=== PATIENT | female | born 1990 | race Caucasian/White ===

== ENCOUNTER 2016-05-19 16:26 | Emergency (ER) | payer MEDICAID ==
[~2016-05-19] VITALS: Ht 162.6 cm; Wt 59.0 kg
[~2016-05-19 16:26] MED LIST: PROT40TA PO; TUMS500C PO; Z.0.BCPILL PO
[2016-05-19 16:32] VITALS: BP 132/89; PULSE 108; RESP 16; TEMP 98.1; O2SAT 99
[2016-05-19] MEDS ORDERED: PREN29TA PO (16:44)
[2016-05-19] MEDS ORDERED: TETANUS/DIPHTHERIA TOXOID ADULT 0.5 ML VIAL IM ONE (16:45)
[2016-05-19] MEDS ORDERED: ACETAMINOPHEN 325 MG TAB PO ONE (16:45)
[2016-05-19] MEDS ORDERED: LIDO2GEL11 TOPICAL (16:54)
[2016-05-19] MEDS ORDERED: BACT2OIN TOPICAL (16:54)
--- NOTE | 2016-05-19 17:00 | PD ---
HPI Chief Complaint: Burn Time Seen by Provider: 16:54 Travel History International Travel<30 days: No Contact w/Intl Traveler<30days: No Traveled to known affect area: No History of Present Illness HPI 25-year-old female that presents to the ED for evaluation of burn to her right hand. Per patient she is right-hand dominant. Per patient she was working and she was bowling water to make soup and she lost her balance and some blood work going to her right hand. She states that the pain is mainly to the palmar aspect of the first digit but she also has pain on her knuckles but more noticeable erythema and blistering on the first digit. She states that she is 5 months . She states that she does not know her last tetanus shot. She is likely to latex. She apply lidocaine jelly to her hand from work to help with the burning. She denies any chest pain or shortness of breath. Other medical prongs. No falls with the . She specifically wants us to give her stuff that is safe during . She states that the pain currently is 10 out of 10 mainly on the first digit. Denies any other medical problems. Nothing makes the pain better or worse. Per patient she immediately flushed it with cold water. PFSH Past Medical History Medical History: Denies Significant Hx Diminished Hearing: No Gastrointestinal Disorders: Yes (GASTRITIS) Immunizations Current: Yes Tetanus Vaccination: > 5 Years Influenza Vaccination: No ?: LMP: 5 mths Past Surgical History Tonsillectomy: Yes Social History Alcohol Use: Yes (occasional) Tobacco Use: No Substance Use: No Allergies-Medications (Allergen,Severity, Reaction): Coded Allergies: Latex (Verified Allergy, Severe, 05/19/16) Reported Meds & Prescriptions Reported Meds & Active Scripts Active Bactroban Topical (Mupirocin) 2% Oint 1 Applic TOPICAL BID Lidocaine Topical (Lidocaine HCl) 2 % Jel 1 Applic TOPICAL QID 10 Days Reported Plus Iron 29-1 mg ( Vit-Iron Carbonyl) 1 Tab Tab 1 Tab PO DAILY Review of Systems General / Constitutional: No: Fever, Chills, Weight Gain, Weight Loss, Other Eyes: No: Diploplia, Blurred Vision, Photophobia, Drainage, Redness, Foreign Body Sensation, Pain, Tearing, Blind Spots, Visual changes, Blindness, Other HENT: No: Headaches, Vertigo, Lightheadedness, Sore Throat, Rhinitis, Rhinorrhea, Congestion, Nosebleed, Neck Stiffness, Neck Pain, Masses, Gingival Bleeding, Dental Difficulties, Ear Discharge, Earache, Other Cardiovascular: No: Chest Pain or Discomfort, Palpitations, Irregular Rhythm, Tachycardia, Diaphoresis, Syncope, Dyspnea on exertion, Varicosities, Edema, Cyanosis, Varicosities, Phlebitis, Claudication, Other Respiratory: No: Cough, Shortness of Breath, Wheezing, Sneezing, Orthopnea, Hemoptysis, Stridor, Night Sweats, Pleuritic Pain, Other Gastrointestinal: No: Nausea, Vomiting, Diarrhea, Abdominal Pain, Hematemesis, Hematochezia, Constipation, Changes in Bowel Habits, Indigestion, Dysphagia, Loss of Appetite, Other Genitourinary: No: Urgency, Frequency, Dysuria, Nocturia, Hematuria, Decreased Urinary Output, Oliguria, Hesitancy, Dribbling, Incontinence, Pelvic Pain, Flank Pain, Dyspareunia, Discharge, Dysmenorrhea, Menorrhagia, Metorrhagia, Vaginal Bleeding, Other Musculoskeletal: Positive: Pain, No: Myalgias, Arthralgias, Limited ROM, Weakness, Cramping, Edema, Atrophy, Other Skin: Positive Other (burn), No Rash, No Itching, No Dryness, No Lumps, No Hives, No Change in Pigmentation, No Change in nails, No Alopecia, No Lesions, No Breast Lumps, No Breast Tenderness, No Breast Swelling Neurologic: No: Weakness, Dizziness, Syncope, Focal Abnormalities, Coordination Problem, Tremor, Ataxia, Headache, Change in Mentation, Slurred Speech, Paresthesia, Incontinence, Seizures, Sensory Disturbance, Other Psychiatric: No: Anxiety, Depression, Suicidal Ideations, Disorder of Thought, Mood Disorder, Substance Abuse, Homicidal Ideation, Other Endocrine: No: Heat Intolerance, Cold Intolerance, Polyuria, Polydipsia, Other Hematologic/Lymphatic: No: Easy Bruising, Lymph Node Enlargement, Other Physical Exam Narrative GENERAL: SKIN: Warm and dry. Patient has full range of motion of all fingers of the right hand. Patient able to move all fingers including the first digit. She does have some erythema that is blanchable with what appears to be early blistering on the right first digit. Patient has good sensation of all fingers. Patient has minimal erythema noted on the palmar aspect of the hand mainly on the second and third digits but is not circumferential. No obvious deformity noted the dorsal aspect of the hand. Most of the cheng appears to be first-degree. HEAD: Atraumatic. Normocephalic. EYES: Pupils equal and round. No scleral icterus. No injection or drainage. ENT: No nasal bleeding or discharge. Mucous membranes pink and moist. NECK: Trachea midline. No JVD. CARDIOVASCULAR: Regular rate and rhythm. RESPIRATORY: No accessory muscle use. Clear to auscultation. Breath sounds equal bilaterally. GASTROINTESTINAL: Abdomen soft, non-tender, nondistended. Hepatic and splenic margins not palpable. MUSCULOSKELETAL: Extremities without clubbing, cyanosis, or edema. No obvious deformities. NEUROLOGICAL: Awake and alert. No obvious cranial nerve deficits. Motor grossly within normal limits. Five out of 5 muscle strength in the arms and legs. Normal speech. PSYCHIATRIC: Appropriate mood and affect; insight and judgment normal. Data Data Last Documented VS Vital Signs Date Time Temp Pulse Resp B/P Pulse Ox O2 Delivery O2 Flow Rate FiO2 05/19/16 16:32 98.1 108 16 132/89 99 Orders Acetaminophen (Tylenol) (05/19/16 16:45) Tetanus/Diphtheria Tox Adult (Tetanus/Di (05/19/16 16:45) MDM Medical Decision Making Medical Screen Exam Complete: Yes Emergency Medical Condition: Yes Medical Record Reviewed: Yes Differential Diagnosis First-degree burn versus second degree burn versus third-degree burn. Narrative Course 25-year-old female that presents to the ED for evaluation of cheng to the hand. Patient was properly examined and was found to have signs and symptoms consistent with appears to be first degree cheng to the hand. Not circumferential. Do affect mostly the first digit but she is able to move it fully with no sensation loss. My attending Dr. Nuñez evaluated the patient with me and agrees with plan. Patient was offered pain medication including narcotic pain medication but she declined secondary to having adverse effects to the fetus. She prefers to avoid anything that will harm that maybe. My attending and I agree we'll treat patient with Tylenol for pain. Patient was given a prescription for lidocaine jelly. Patient was given a prescription for basically tracing. Told to follow closely with PCP. See ED for any worsening symptoms. Ice to the area as needed to help with the pain. She was given note for work for a week. See ED for any worsening symptoms. Diagnosis Primary Impression: 1st deg burn hand-mult Patient Instructions: General Instructions Additional Instructions: Take medications as prescribed. Follow-up with PCP. See ED for worsening symptoms. Ice as needed. Tylenol for pain. Med/Other Pt SpecificInfo: Prescription(s) given, Wound Care Scripts Mupirocin Topical (Bactroban Topical)2% Oint1 Applic TOPICAL BID #22 GM Ref 0 Prov:Kathi Nuñez DO 05/19/16 Lidocaine Topical 2 % Jel1 Applic TOPICAL QID 10 Days Ref 0 Prov:Kathi Nuñez DO 05/19/16 Disposition: 01 DISCHARGE HOME Condition: Stable Jose Castro May 19, 2016 17:00
== END 2016-05-19 17:15 | disposition home or self-care (01) ==
LOC: PHEFT 16:26
DX: T23.009A Burn of unspecified degree of unspecified hand, unspecified site, initial encounter (principal); Z23 Encounter for immunization
CPT/HCPCS: 90471; 90714

== ENCOUNTER 2016-09-27 17:49 | Inpatient (IN) | payer MEDICAID ==
[~2016-09-27] VITALS: Ht 162.6 cm; Wt 68.0 kg
[~2016-09-27 17:49] MED LIST changes: +BACT2OIN TOPICAL; +LIDO2GEL11 TOPICAL; +PREN29TA PO; -PROT40TA PO; -TUMS500C PO; -Z.0.BCPILL PO
[2016-09-27] MEDS ORDERED: PROT40TA PO (18:22)
[2016-09-27 18:41] VITALS: RESP 17; TEMP 98.3
[2016-09-27 18:43] VITALS: BP 133/89; PULSE 86
[2016-09-27] MEDS ORDERED: NS 1000 ML IV PRN (18:45)
[2016-09-27] MEDS ORDERED: LACTATED RINGER'S 1000 ML BOLUS IV PRN (18:45)
[2016-09-27] MEDS ORDERED: LIDOCAINE HCL 1% 50 ML VIAL I-DERMAL PRN (18:45)
[2016-09-27] MEDS ORDERED: ZOLPIDEM TARTRATE 10 MG TAB PO PRN (18:45)
[2016-09-27] MEDS ORDERED: ONDANSETRON HCL 4 MG/2 ML VIAL IV PRN (18:45)
[2016-09-27] MEDS ORDERED: CITRIC ACID-SODIUM CITRATE LIQ 30 ML UDC PO SCH (18:45)
[2016-09-27] MEDS ORDERED: DINOPROSTONE 10 MG INSERT - REMOVE AT 0600 VAGINAL ONE (18:45)
[2016-09-27] MEDS ORDERED: NS 500 ML BOLUS IV PRN (18:45)
[2016-09-27] MEDS ORDERED: OXYTOCIN 30 UNITS 500ML PREMIX IV ONE (18:45)
[2016-09-27] MEDS ORDERED: LIDOCAINE HCL 1% 50 ML VIAL INFIL PRN (18:45)
[2016-09-27] MEDS: LACTATED RINGER'S 1000 ML IV SCH (18:45)
[2016-09-27] MEDS ORDERED: MINERAL OIL 10 ML VIAL TOPICAL PRN (18:45)
[2016-09-27] MEDS ORDERED: OXYTOCIN 30 UNITS/NS 500ML PREMIX IV SCH (18:45)
[2016-09-27 18:49] VITALS: BP 129/87; PULSE 81
[2016-09-27] MEDS ORDERED: PENICILLIN G POT 5,000,000 UNITS/NS 100 ML (Mini-Bag Plus) IV ONE ×2 (19:00)
[2016-09-27 19:30] LABS: BACTERIA, URINE RARE /hpf; BLOOD, URINE NEG (NEG); COMMENT (UR) CULT NOT INDICATED; CULTURE IF INDICATED CULT NOT INDICATED; GLUCOSE,URINE NEG (NEG); KETONE, URINE NEG (NEG); MUCUS URINE FEW /lpf (OCC); NITRITE,URINE NEG (NEG); PH, URINE 6.5 (5.0-8.5); SQUAMOUS EPITHELIAL CELL URINE 6 /hpf (0-5); URINE COLOR YELLOW (YELLW/STRAW)
[2016-09-27 19:31] LABS: AUTOMATED NEUTROPHIL # 3.6 TH/MM3 (1.8-7.7); BASOPHIL % 0.6 % (0.0-2.0); EOSINOPHIL # 0.1 TH/MM3 (0-0.4); HEMATOCRIT 33.8 % (35.0-46.0); HEMO FLAGS DIFF FINAL; LYMPH % 32.2 % (9.0-44.0); LYMPHOCYTE # 2.2 TH/MM3 (1.0-4.8); MEAN CELL VOLUME 82.1 FL (80.0-100.0); MEAN CORPUSCULAR HEMOGLOBIN 26.2 PG (27.0-34.0); MONO % 11.3 % (0.0-8.0); NEUT % 53.9 % (16.0-70.0); PLATELET COUNT 192 TH/MM3 (150-450); RED BLOOD COUNT 4.12 MIL/MM3 (4.00-5.30); RED CELL DISTRIBUTION WIDTH 14.8 % (11.6-17.2); WHITE BLOOD COUNT 6.7 TH/MM3 (4.0-11.0)
[2016-09-27] MEDS ORDERED: PENICILLIN G POT 2,500,000 UNITS/NS 100 ML IV SCH ×2 (23:00)
[2016-09-27 23:10] VITALS: BP 115/67; PULSE 82; TEMP 98.2
[2016-09-27 23:11] VITALS: RESP 18
[2016-09-28] VITALS (45 sets, daily range): BP systolic 117–175; BP diastolic 75–101; PULSE 72–118; RESP 16–18; TEMP 97.8–100.4
[2016-09-28] MEDS ORDERED: PENICILLIN G POT 5,000,000 UNITS/NS 100 ML (Mini-Bag Plus) IV ONE ×2 (06:00)
[2016-09-28] MEDS ORDERED: PENICILLIN G POT 2,500,000 UNITS/NS 100 ML IV SCH ×2 (10:00)
[2016-09-28] MEDS ORDERED: fentaNYL 2MCG-BUPIV 0.125% INJ 100 ML ONE ×2 (10:42→14:08)
[2016-09-28] MEDS: LACTATED RINGER'S 1000 ML IV SCH (10:45)
--- NOTE | 2016-09-28 13:24 | HHI.HP ---
HPI Travel History International Travel<30 Days: No Contact w/Intl Traveler<30Days: No Known Affected Area: No History of Present Illness HPI 26yo G [id number] presents at 39 wks for induction of labor. uncomplicated. +FM denies LOF, VB, CTX History Past Medical History Medical History: Denies Significant Hx Obstetric History Obstetric History X 1 Past Surgical History Narrative Surgical tonsillectomy ACL reconstruction wisdom teeth extraction Family History Narrative Family History mom HTN mgm: cancer Social History Alcohol Use: No Tobacco Use: No Substance Abuse: No Allergies-Medications (Allergen,Severity, Reaction): Coded Allergies: Latex (Verified Allergy, Severe, 09/27/16) Home Meds Reported Medications Pantoprazole (Protonix)40 Mg Tab40 Mg PO DAILY #30 TAB Ref 0 09/27/16 Vit-Iron Carbonyl ( Plus Iron 29-1 mg)1 Tab Tab1 Tab PO DAILY #30 TAB Ref 0 05/19/16 Discontinued Scripts Mupirocin Topical (Bactroban Topical)2% Oint1 Applic TOPICAL BID #22 GM Ref 0 Prov:Kathi Nuñez DO 05/19/16 Lidocaine Topical 2 % Jel1 Applic TOPICAL QID 10 Days Ref 0 Prov:Kathi Nuñez DO 05/19/16 Review of Systems Except as stated in HPI: all other systems reviewed are Neg Physical Exam Vital Signs Date Time Temp Pulse Resp B/P Pulse Ox O2 Delivery O2 Flow Rate FiO2 09/28/16 13:00 79 122/75 09/28/16 12:45 77 129/87 09/28/16 12:30 75 129/83 09/28/16 12:15 72 09/28/16 11:42 97.8 18 09/28/16 11:35 76 09/28/16 11:35 79 123/81 09/28/16 11:31 90 137/79 09/28/16 11:30 81 09/28/16 11:25 75 09/28/16 11:25 90 09/28/16 11:25 123/84 09/28/16 11:20 76 123/79 09/28/16 11:20 80 09/28/16 11:15 85 09/28/16 11:15 82 126/82 09/28/16 11:10 87 135/91 09/28/16 11:10 95 09/28/16 11:05 82 09/28/16 11:05 80 134/81 09/28/16 11:03 83 132/84 09/28/16 11:00 80 09/28/16 10:56 118 154/94 09/28/16 10:55 90 09/28/16 10:39 83 139/83 09/28/16 09:30 84 134/82 09/28/16 09:15 77 127/85 09/28/16 09:00 85 138/95 09/28/16 08:31 86 130/79 09/28/16 08:15 77 133/92 09/28/16 08:00 82 134/94 09/28/16 07:50 98.2 18 09/28/16 07:45 85 126/94 09/28/16 07:33 84 126/90 09/28/16 03:03 18 09/28/16 03:03 81 126/77 09/28/16 03:03 98.5 09/27/16 23:11 18 09/27/16 23:10 98.2 09/27/16 23:10 82 115/67 09/27/16 18:49 81 129/87 09/27/16 18:43 86 133/89 09/27/16 18:41 98.3 17 Narrative GENERAL: Well-nourished, well-developed patient. SKIN: Warm and dry. HEAD: Normocephalic and atraumatic. EYES: No scleral icterus. No injection or drainage. ENT: No nasal drainage noted. Mucous membranes pink. Airway patent. NECK: Supple, trachea midline. No JVD. CARDIOVASCULAR: Regular rate and rhythm without murmurs, gallops, or rubs. RESPIRATORY: Breath sounds equal bilaterally. No accessory muscle use. BREASTS: Bilateral exam showed no masses , no retractions, no nipple discharge. ABDOMEN/GI: Abdomen soft, non-tender, bowel sounds present, no rebound, no guarding Gravid to 39 weeks size Fundal Height: [-] GENITOURINARY: External Genitalia: intact and normal in appearance BUS glands: [-] Cervix: [-] Dilatation: [-] 2 Effacement: [-] 50 Station: [-] -3 Presentation: [-] Membranes: [ ruptured] clear Uterine Contractions: [-] irregular FHT's: Category: [-] 1 Baseline: [-] 140s Reactive: [-] yes Variability: [-] Decels: [-] EXTREMITIES: No cyanosis or edema. BACK: Nontender without obvious deformity. No CVA tenderness. NEUROLOGICAL: Awake and alert. Motor and sensory grossly within normal limits. Five out of 5 muscle strength in all muscle groups. Normal speech. Data Data Orders Admit To Inpatient (09/27/16 ) Code Status (09/27/16 18:31) Vital Signs (Adult) .Per protocol (09/27/16 18:31) Activity Oob Ad Clarice (09/27/16 18:31) Heart (09/27/16 18:31) Amnioinfusion (09/27/16 18:31) Urinary Catheter Management .ONCE (09/27/16 18:31) Complete Blood Count With Diff (09/27/16 18:31) Hold Clot (09/27/16 18:31) Abo/Rh Blood Type (09/27/16 18:31) Urinalysis - C+S If Indicated (09/27/16 18:31) Resp Oxygen Non Rebreathe Mask (09/27/16 ) ^ Epidural / Intrathecal Infus (09/27/16 18:31) Admit To Inpatient (09/27/16 ) Diet Regular Basic (09/27/16 Dinner) Diet Liquid (09/28/16 Breakfast) Activity Oob Ad Clarice (09/27/16 18:31) Activity Oob Ad Clarice (09/27/16 18:31) ^ Labor Induction (09/27/16 18:31) ^ Vaginal Insert (09/27/16 18:31) ^ Vaginal Lavage (09/27/16 18:31) Heart (09/27/16 18:31) ^ Non Stress Test (09/27/16 18:31) Response To Medication .Post New Med Administration, Reaction (09/27/16 18:31) ^ Discontinue Medication (09/27/16 18:31) Oxytocin 30 Units-500ml Premix (Pitocin (09/27/16 18:45) Dinoprostone Vag Insert (Cervidil Vag In (09/27/16 18:45) Zolpidem (Ambien) (09/27/16 18:45) Lactated Ringer's 1000 Ml Inj (Lr 1000 M (09/27/16 18:45) Lactated Ringer's 1000 Ml Inj (Lr 1000 M (09/27/16 18:45) Sodium Chlorid 0.9% 500 Ml Inj (Ns 500 M (09/27/16 18:45) Sodium Chlor 0.9% 1000 Ml Inj (Ns 1000 M (09/27/16 18:45) Lidocaine 1% Inj (50 Ml) (Xylocaine 1% I (09/27/16 18:45) Citric Acid-Sodium Citrate Liq (Bicitra (09/27/16 18:45) Ondansetron Inj (Zofran Inj) (09/27/16 18:45) Fentanyl Inj (Fentanyl Inj) (09/27/16 18:45) Fentanyl Inj (Fentanyl Inj) (09/27/16 18:45) Oxytocin 30 Units-500ml Premix (Pitocin (09/27/16 18:45) Lidocaine 1% Inj (50 Ml) (Xylocaine 1% I (09/27/16 18:45) Light Mineral Oil (Muri-Lube Oil) (09/27/16 18:45) Penicillin G Potassium Inj (Pfizerpen-G (09/28/16 06:00) Penicillin G Potassium Inj (Pfizerpen-G (09/28/16 10:00) Fentanyl 2mcg-Bupiv 0.125% Inj (Fentanyl (09/28/16 10:42) Labs Laboratory Tests Test 09/27/16 18:45 White Blood Count 6.7 Red Blood Count 4.12 Hemoglobin 10.8 Hematocrit 33.8 Mean Corpuscular Volume 82.1 Mean Corpuscular Hemoglobin 26.2 Mean Corpuscular Hemoglobin 32.0 Concent Red Cell Distribution Width 14.8 Platelet Count 192 Mean Platelet Volume 9.2 Neutrophils (%) (Auto) 53.9 Lymphocytes (%) (Auto) 32.2 Monocytes (%) (Auto) 11.3 Eosinophils (%) (Auto) 2.0 Basophils (%) (Auto) 0.6 Neutrophils # (Auto) 3.6 Lymphocytes # (Auto) 2.2 Monocytes # (Auto) 0.8 Eosinophils # (Auto) 0.1 Basophils # (Auto) 0.0 CBC Comment DIFF FINAL Differential Comment Urine Color YELLOW Urine Turbidity HAZY Urine pH 6.5 Urine Specific [place] 1.015 Urine Protein TRACE Urine Glucose (UA) NEG Urine Ketones NEG Urine Occult Blood NEG Urine Nitrite NEG Urine Bilirubin NEG Urine Urobilinogen LESS THAN 2.0 Urine Leukocyte Esterase SMALL Urine RBC 2 Urine WBC 2 Urine Squamous Epithelial 6 Cells Urine Bacteria RARE Urine Mucus FEW Microscopic Urinalysis Comment CULT NOT INDICATED Blood Type A POSITIVE Band and Hold HOLD CLOT IN BB Assessment/Plan Problem List: (1) Plan: s/p cervidil cont pit cont pcn g Meek Mon MD Sep 28, 2016 13:24
[2016-09-28] MEDS ORDERED: MISOPROSTOL 200 MCG TAB ONE (14:37)
[2016-09-28] MEDS ORDERED: DIPHTH/TETANUS/ACEL PERTUSSIS (BOOSTER) 0.5 ML VIAL/PFS IM ONE (16:00)
[2016-09-28] MEDS ORDERED: MEASLES, MUMPS, RUBELLA VACCINE 0.5 ML VIAL SQ ONE (16:00)
--- NOTE | 2016-09-28 18:18 | PD.OB.DELI ---
Delivery Date: Sep 28, 2016 Anesthesia: Epidural, Lidocaine local to perineum Episiotomy: None Vaginal Delivery: Normal Presentation: Occiput anterior Nuchal Cord: None Delayed cord clamping (45 sec): Yes Infant: Male, Single One Minute : 7 Five Minute : 9 Weight: 6-14 Placenta: Spontaneous delivery, Intact, 3 vessel cord (right labial laceration repaired with 3-0 chromic in a running fashion) Laceration: 1 deg (right labial laceration repaired with 3-0 chromic suture in running fashion) Additional Information PPH resolved with uterine massage, pitocin and cytotec, EBL 550 Meek Mon MD Sep 28, 2016 18:18
[2016-09-28] MEDS ORDERED: DOCUSATE SODIUM 50 MG/SENNA 8.6 MG TAB PO PRN (18:30)
[2016-09-28] MEDS ORDERED: ONDANSETRON ODT 4 MG TAB PO PRN (18:30)
[2016-09-28] MEDS ORDERED: WITCH HAZEL 50%/GLYCERIN 12.5% 40 PAD JAR TOPICAL PRN (18:30)
[2016-09-28] MEDS ORDERED: SODIUM CHLORIDE 0.9% FLUSH 10 ML FLUSH IV FLUSH PRN (18:30)
[2016-09-28] MEDS ORDERED: BENZOCAINE 20% TOPICAL SPRAY 60 ML CAN TOPICAL PRN (18:30)
[2016-09-28] MEDS ORDERED: ZOLPIDEM TARTRATE 5 MG TAB PO PRN (18:30)
[2016-09-28] MEDS ORDERED: ALUMINUM/MAGNESIUM/SIMETH 30 ML CUP PO PRN (18:30)
[2016-09-28] MEDS ORDERED: oxyCODONE/ACETAMINOPHEN 5 MG/325 MG TAB PO PRN (18:30)
[2016-09-28] MEDS: IBUPROFEN 600 MG TAB PO PRN (19:50)
[2016-09-28] MEDS: ACETAMINOPHEN 325 MG TAB PO PRN (19:50)
[2016-09-28] MEDS ORDERED: SODIUM CHLORIDE 0.9% FLUSH 10 ML FLUSH IV FLUSH SCH (21:00)
[2016-09-29] MEDS: ACETAMINOPHEN 325 MG TAB PO PRN ×3 (03:15→16:48)
[2016-09-29] MEDS: IBUPROFEN 600 MG TAB PO PRN ×3 (03:17→16:47)
[2016-09-29 05:30] LABS: AUTOMATED NEUTROPHIL # 5.4 TH/MM3 (1.8-7.7); BASOPHIL % 0.5 % (0.0-2.0); EOSINOPHIL # 0.1 TH/MM3 (0-0.4); EOSINOPHIL % 1.2 % (0.0-4.0); HEMATOCRIT 30.6 % (35.0-46.0); HEMO FLAGS DIFF FINAL; LYMPH % 22.4 % (9.0-44.0); LYMPHOCYTE # 1.9 TH/MM3 (1.0-4.8); MEAN CELL VOLUME 81.9 FL (80.0-100.0); MEAN CORPUSCULAR HEMOGLOBIN 26.8 PG (27.0-34.0); MEAN CORPUSCULAR HGB CONC 32.7 % (32.0-36.0); MONO % 12.4 % (0.0-8.0); NEUT % 63.5 % (16.0-70.0); PLATELET COUNT 166 TH/MM3 (150-450); RED BLOOD COUNT 3.74 MIL/MM3 (4.00-5.30); RED CELL DISTRIBUTION WIDTH 14.9 % (11.6-17.2); WHITE BLOOD COUNT 8.5 TH/MM3 (4.0-11.0)
--- NOTE | 2016-09-29 08:33 | HHI.OB ---
Subjective Post Day: 1 Remarks pain controlled, mod lochia, durga po, +void/flatus Objective Vitals/I&O Vital Signs Date Time Temp Pulse Resp B/P Pulse Ox O2 Delivery O2 Flow Rate FiO2 09/28/16 19:30 98.9 89 16 120/77 09/28/16 18:10 99.2 09/28/16 18:10 89 16 127/79 09/28/16 16:07 100.4 09/28/16 15:48 99.9 09/28/16 15:46 102 117/87 09/28/16 15:40 99.3 09/28/16 15:29 84 138/86 09/28/16 15:01 115 135/82 09/28/16 14:46 90 141/86 09/28/16 14:30 80 130/89 09/28/16 14:22 111 175/75 09/28/16 14:20 90 09/28/16 13:45 93 152/95 09/28/16 13:34 80 136/90 09/28/16 13:33 90 122/101 09/28/16 13:31 96 156/88 09/28/16 13:15 84 144/98 09/28/16 13:00 79 122/75 09/28/16 12:45 77 129/87 09/28/16 12:30 75 129/83 09/28/16 12:15 72 09/28/16 11:42 97.8 18 09/28/16 11:35 76 09/28/16 11:35 79 123/81 09/28/16 11:31 90 137/79 09/28/16 11:30 81 09/28/16 11:25 75 09/28/16 11:25 90 09/28/16 11:25 123/84 09/28/16 11:20 76 123/79 09/28/16 11:20 80 09/28/16 11:15 85 09/28/16 11:15 82 126/82 09/28/16 11:10 87 135/91 09/28/16 11:10 95 09/28/16 11:05 82 09/28/16 11:05 80 134/81 09/28/16 11:03 83 132/84 09/28/16 11:00 80 09/28/16 10:56 118 154/94 09/28/16 10:55 90 09/28/16 10:39 83 139/83 09/28/16 09:30 84 134/82 09/28/16 09:15 77 127/85 09/28/16 09:00 85 138/95 Objective Remarks GENERAL: Well-nourished, well-developed patient. CARDIOVASCULAR: Regular rate and rhythm without murmurs, gallops, or rubs. RESPIRATORY: Breath sounds equal bilaterally. No accessory muscle use. ABDOMEN/GI: Abdomen soft, non-tender. Fundus: Firm, non-tender at umbilicus. GENITOURINARY: Light to moderate bleeding. EXTREMITIES: No cyanosis or edema, non-tender, without signs of DVT. Medications and IVs Current Medications Medications (Trade) Dose Ordered Sig/Sulema Route Start Time Stop Time Status Last Admin (NS Flush) 2 ml BID IV FLUSH 09/28/16 21:00 (NS Flush) 2 ml UNSCH PRN IV FLUSH 09/28/16 18:30 (Tylenol) 650 mg Q4H PRN PO 09/28/16 18:30 09/29/16 03:15 (Motrin) 600 mg Q6H PRN PO 09/28/16 18:30 09/29/16 03:17 (Percocet 5-325 Mg) 1 tab Q4H PRN PO 09/28/16 18:30 (Americaine 20% Top Spr) 1 spray Q4H PRN TOPICAL 09/28/16 18:30 09/28/16 19:49 (Tucks Pads) 1 applic QID PRN TOPICAL 09/28/16 18:30 09/28/16 19:50 (Dolly-Colace) 2 tab Q12H PRN PO 09/28/16 18:30 (Ambien) 5 mg HS PRN PO 09/28/16 18:30 (Mag-Al Plus Susp Liq) 15 ml Q8H PRN PO 09/28/16 18:30 (Zofran Odt) 4 mg Q6H PRN PO 09/28/16 18:30 Assessment/Plan Problem List: (1) Spontaneous vaginal delivery Plan: routine pp care Meek Mon MD Sep 29, 2016 08:33
[2016-09-29 09:00] VITALS: BP 122/84; PULSE 86; RESP 16; TEMP 98
[2016-09-29 19:34] VITALS: BP 117/77; PULSE 81; RESP 18; TEMP 98.4
[2016-09-30] MEDS: ACETAMINOPHEN 325 MG TAB PO PRN (01:39)
[2016-09-30] MEDS: IBUPROFEN 600 MG TAB PO PRN (01:39)
[2016-09-30 07:42] VITALS: BP 120/82; PULSE 74; RESP 18; TEMP 98.3
[2016-09-30] MEDS ORDERED: IBUP-232 PO (12:46)
--- NOTE | 2016-09-30 12:48 | HHI.DCPOC ---
Discharge Care Plan Diagnosis: (1) Spontaneous vaginal delivery Your Health Problems Are: Vaginal delivery Report Symptoms to Your Doctor -Temperature above 100.5 degrees -Redness, of incision or excessive or foul smelling drainage -Unusual pain or calf pain -Increased vaginal bleeding -Painful or difficulty urinating -Feelings of extreme sadness or anxiety after 2 weeks Goals to Promote Your Health * To prevent worsening of your condition and complications * To maintain your health at the optimal level Directions to Meet Your Goals Take your medications as prescribed Follow your dietary instruction Follow activity as directed Ensure plenty of rest for recovery Drink fluids for hydration Keep your appointments as scheduled Take your immunizations and boosters as scheduled If your symptoms worsen call your PCP, if no PCP go to Urgent Care Center or Emergency Room Smoking is Dangerous to Your Health. Avoid second hand smoke Call the 24-hour crisis hotline for domestic abuse at Meek Mon MD Sep 30, 2016 12:48
--- NOTE | 2016-09-30 12:50 | HHI.DS ---
Admission Date Sep 27, 2016 at 17:49 Discharge Date: Sep 30, 2016 Admitting Diagnosis Diagnosis: (1) Spontaneous vaginal delivery Delivery Date: Sep 28, 2016 Vaginal Delivery: Normal : Male, Single Brief History 26yo G [id number] presents at 39 wks for induction of labor. uncomplicated. +FM denies LOF, VB, CTX Hospital Course pt was admitted for induction of labor with cervidil. she had an uncomplicated . by PPD 2 pt was voiding with good pain control and stable for d/c home Pt Condition on Discharge: Stable Discharge Disposition: Discharge Home Discharge Instructions Diet Instructions: As Tolerated, No Restrictions Additional Diet Instructions: Drink at least 8 - 16 oz bottles of water a day Activities You Can Perform: Shower Only-No Bath, Sitz Bath Activities to Avoid: Lifting/Bending, Sexual Activity Additional Activity Instruc.: No driving until off pain medications Do not lift anything heavier than your baby in an carrier Meek Mon MD Sep 30, 2016 12:49
== END 2016-09-30 13:28 | disposition home or self-care (01) | DRG 774 ==
LOC: H2EA 17:49 → H1EA 09-28 16:33
PROVIDERS: ADMIT Obstetrics & Gynecology; ATTEND Obstetrics & Gynecology
PROC: 3E0P7GC Introduction of Other Therapeutic Substance into Female Reproductive, Via Natural or Artificial Opening (ICD-10-PCS; 2016-09-27)
PROC: 10E0XZZ Delivery of Products of Conception, External Approach (ICD-10-PCS; principal; 2016-09-28)
PROC: 0HQ9XZZ Repair Perineum Skin, External Approach (ICD-10-PCS; 2016-09-28)
DX: O72.1 Other immediate postpartum hemorrhage (principal); O70.0 First degree perineal laceration during delivery; Z37.0 Single live birth; Z3A.39 39 weeks gestation of pregnancy
CPT/HCPCS: 59025; 81001; 85025; 86900; 86901; J2540; J2590; J7120

== ENCOUNTER 2017-09-06 08:04 | Inpatient (IN) | payer MEDICAID ==
[~2017-09-06 08:04] MED LIST changes: -BACT2OIN TOPICAL; +IBUP-232 PO; -LIDO2GEL11 TOPICAL; +PROT40TA PO
[2017-09-06 08:49] LABS: BASOPHIL # 0.1 TH/MM3 (0-0.2); EOSINOPHIL # 0.4 TH/MM3 (0-0.4); EOSINOPHIL % 5.8 % (0.0-4.0); HEMATOCRIT 32.3 % (35.0-46.0); HEMOGLOBIN 10.6 GM/DL (11.6-15.3); LYMPHOCYTE # 2.2 TH/MM3 (1.0-4.8); MEAN CELL VOLUME 79.6 FL (80.0-100.0); MEAN CORPUSCULAR HEMOGLOBIN 26.1 PG (27.0-34.0); MEAN CORPUSCULAR HGB CONC 32.7 % (32.0-36.0); MEAN PLATELET VOLUME 8.3 FL (7.0-11.0); MONO % 10.1 % (0.0-8.0); MONOCYTE # 0.8 TH/MM3 (0-0.9); NEUT % 53.1 % (16.0-70.0); PLATELET COUNT 222 TH/MM3 (150-450); RED BLOOD COUNT 4.05 MIL/MM3 (4.00-5.30); RED CELL DISTRIBUTION WIDTH 14.9 % (11.6-17.2); WHITE BLOOD COUNT 7.5 TH/MM3 (4.0-11.0)
[2017-09-06] MEDS ORDERED: LACTATED RINGER'S 1000 ML INJ 1,000 ML IV SCH (09:00)
[2017-09-06 09:03] LABS: AMORPHOUS SEDIMENT, URINE RARE; BACTERIA, URINE OCC /hpf; BILIRUBIN, URINE NEG (NEG); BLOOD, URINE NEG (NEG); GLUCOSE,URINE NEG (NEG); KETONE, URINE NEG (NEG); MUCUS URINE FEW /lpf (OCC); NITRITE,URINE NEG (NEG); SQUAMOUS EPITHELIAL CELL URINE 8 /hpf (0-5); TRANSITIONAL EPI CELLS, URINE <1 /hpf; URINE COLOR YELLOW (YELLW/STRAW); URINE LEUKOCYTE ESTERASE MOD (NEG)
[2017-09-06] MEDS ORDERED: LACTATED RINGER'S 1000 ML INJ 1,000 ML IV PRN (09:09)
[2017-09-06] MEDS ORDERED: OXYTOCIN 30 UNITS-500ML PREMIX 500 ML ONE (09:10)
[2017-09-06] MEDS ORDERED: SODIUM CHLORID 0.9% 500 ML INJ 500 ML IV PRN (09:15)
[2017-09-06] MEDS ORDERED: LIDOCAINE HCL 1% 50 ML VIAL I-DERMAL PRN (09:15)
[2017-09-06] MEDS ORDERED: CITRIC ACID-SODIUM CITRATE LIQ 30 ML UDC PO SCH (09:15)
[2017-09-06] MEDS ORDERED: MINERAL OIL 10 ML VIAL TOPICAL PRN (09:15)
[2017-09-06] MEDS ORDERED: OXYTOCIN 30 UNITS-500ML PREMIX 500 ML IV ONE (09:15)
[2017-09-06] MEDS ORDERED: OXYTOCIN 30 UNITS-500ML PREMIX 500 ML IV PRN (09:15)
[2017-09-06] MEDS ORDERED: LIDOCAINE HCL 1% 50 ML VIAL INFIL PRN (09:15)
[2017-09-06] MEDS ORDERED: SODIUM CHLOR 0.9% 1000 ML INJ 1,000 ML IV PRN (09:29)
[2017-09-06] MEDS ORDERED: fentaNYL 2MCG-BUPIV 0.125% INJ 150 ML EPIDURAL ONE (13:01)
[2017-09-06] MEDS ORDERED: LIDOCAINE 1.5%/EPINEPHrine 1:200,000 PF 5 ML AMP ONE (13:10)
--- NOTE | 2017-09-06 13:12 | HHI.HP ---
HPI Chief Complaint induction at 39 weeks Date Seen: Sep 06, 2017 Time Seen: 09:00 Travel History International Travel<30 Days: No Contact w/Intl Traveler<30Days: No Known Affected Area: No History of Present Illness HPI 27 yo WF here 39 weeks induction at 3 cm dilated Weeks Gestation: 39 Para: 2 : 2 History Past Medical History Medical History: Denies Significant Hx Past Surgical History Surgical History: No Previous Surgery Social History Alcohol Use: No Tobacco Use: No Substance Abuse: No Allergies-Medications (Allergen,Severity, Reaction): Coded Allergies: latex (Unverified Allergy, Severe, 11/13/16) Home Meds Active Scripts Ibuprofen (Ibuprofen) 600 Mg Tab, 600 MG PO Q6H Y for CRAMPING, #30 TAB Prov:Meek Mon MD 09/30/16 Reported Medications Pantoprazole (Protonix) 40 Mg Tab, 40 MG PO DAILY for Reflux, #30 TAB 0 Refills 09/27/16 Vit-Iron Carbonyl ( Plus Iron 29-1 mg) 1 Tab Tab, 1 TAB PO DAILY for Nutritional Supplement, #30 TAB 0 Refills 05/19/16 Review of Systems Except as stated in HPI: all other systems reviewed are Neg Physical Exam Narrative GENERAL: Well-nourished, well-developed patient. SKIN: Warm and dry. HEAD: Normocephalic and atraumatic. EYES: No scleral icterus. No injection or drainage. ENT: No nasal drainage noted. Mucous membranes pink. Airway patent. NECK: Supple, trachea midline. No JVD. CARDIOVASCULAR: Regular rate and rhythm without murmurs, gallops, or rubs. RESPIRATORY: Breath sounds equal bilaterally. No accessory muscle use. BREASTS: Bilateral exam showed no masses , no retractions, no nipple discharge. ABDOMEN/GI: Abdomen soft, non-tender, bowel sounds present, no rebound, no guarding Gravid to [-] weeks size Fundal Height: [-] GENITOURINARY: External Genitalia: intact and normal in appearance BUS glands: [-] Cervix: [-] Dilatation: 3 Effacement: [-] Station: [-] Presentation: vtx Membranes: AROM Uterine Contractions: [-] FHT's: Category: 1 Baseline: [-] Reactive: [-] Variability: [-] Decels: [-] EXTREMITIES: No cyanosis or edema. BACK: Nontender without obvious deformity. No CVA tenderness. NEUROLOGICAL: Awake and alert. Motor and sensory grossly within normal limits. Five out of 5 muscle strength in all muscle groups. Normal speech. Caprini VTE Risk Assessment Caprini VTE Risk Assessment: No/Low Risk (score <= 1) Caprini Risk Assessment Model Point Value = 1 Point Value = 2 Point Value = 3 Point Value = 5 Age 41-60 Minor surgery BMI > 25 kg/m2 Swollen legs Varicose veins or History of unexplained or recurrent spontaneous Oral contraceptives or hormone replacement Sepsis (< 1 month) Serious lung disease, including pneumonia (< 1 month) Abnormal pulmonary function Acute myocardial infarction Congestive heart failure (< 1 month) History of inflammatory bowel disease Medical patient at bed rest Age 61-74 Arthroscopic surgery Major open surgery (> 45 min) Laparoscopic surgery (> 45 min) Malignancy Confined to bed (> 72 hours) Immobilizing plaster cast Central venous access Age >= 75 History of VTE Family history of VTE Factor V Leiden Prothrombin [id number] Lupus anticoagulant Anticardiolipin antibodies Elevated serum homocysteine Heparin-induced thrombocytopenia Other congenital or acquired thrombophilia Stroke (< 1 month) Elective arthroplasty Hip, pelvis, or leg fracture Acute spinal cord injury (< 1 month) Prophylaxis Regimen Total Risk Factor Score Risk Level Prophylaxis Regimen 0-1 Low Early ambulation 2 Moderate Order ONE of the following: *Sequential Compression Device (SCD) *Heparin 5000 units SQ BID 3-4 Higher Order ONE of the following medications: *Heparin 5000 units SQ TID *Enoxaparin/Lovenox 40 mg SQ daily (WT < 150 kg, CrCl > 30 mL/min) *Enoxaparin/Lovenox 30 mg SQ daily (WT < 150 kg, CrCl > 10-29 mL/min) *Enoxaparin/Lovenox 30 mg SQ BID (WT < 150 kg, CrCl > 30 mL/min) AND/OR *Sequential Compression Device (SCD) 5 or more Highest Order ONE of the following medications: *Heparin 5000 units SQ TID (Preferred with Epidurals) *Enoxaparin/Lovenox 40 mg SQ daily (WT < 150 kg, CrCl > 30 mL/min) *Enoxaparin/Lovenox 30 mg SQ daily (WT < 150 kg, CrCl > 10-29 mL/min) *Enoxaparin/Lovenox 30 mg SQ BID (WT < 150 kg, CrCl > 30 mL/min) AND *Sequential Compression Device (SCD) Data Data Vital Signs Reviewed: Yes Orders Orders Complete Blood Count With Diff (09/06/17 08:36) Abo/Rh Blood Type (09/06/17 08:36) Hold Clot (09/06/17 08:36) Urinalysis - C+S If Indicated (09/06/17 08:36) Specimen To Be Collected PRN (09/06/17 08:36) Ob/Psych Drug Screen, Urine (09/06/17 08:36) Diet Clear Liquid (09/06/17 Breakfast) Admit To Inpatient (09/06/17 ) Code Status (09/06/17 09:09) Vital Signs (Adult) .Per protocol (09/06/17 09:09) Heart (09/06/17 09:09) Amnioinfusion (09/06/17 09:09) Urinary Catheter Management .ONCE (09/06/17 09:09) Lactated Ringer's 1000 Ml Inj (Lr 1000 M (09/06/17 09:00) Lactated Ringer's 1000 Ml Inj (Lr 1000 M (09/06/17 09:09) Sodium Chlorid 0.9% 500 Ml Inj (Ns 500 M (09/06/17 09:15) Sodium Chlor 0.9% 1000 Ml Inj (Ns 1000 M (09/06/17 09:29) Lidocaine 1% Inj (50 Ml) (Xylocaine 1% I (09/06/17 09:15) Citric Acid-Sodium Citrate Liq (Bicitra (09/06/17 09:15) Fentanyl Inj (Fentanyl Inj) (09/06/17 09:15) Fentanyl Inj (Fentanyl Inj) (09/06/17 09:15) Resp Oxygen Non Rebreathe Mask (09/06/17 ) ^ Epidural / Intrathecal Infus (09/06/17 09:09) Oxytocin 30 Units-500ml Premix (Pitocin (09/06/17 09:15) Lidocaine 1% Inj (50 Ml) (Xylocaine 1% I (09/06/17 09:15) Light Mineral Oil (Muri-Lube Oil) (09/06/17 09:15) Inpatient Certification (09/06/17 ) Oxytocin 30 Units-500ml Premix (Pitocin (09/06/17 09:10) ^ Non Stress Test (09/06/17 09:12) Response To Medication .Post New Med Administration, Reaction (09/06/17 09:12) ^ Discontinue Medication (09/06/17 09:12) Oxytocin 30 Units-500ml Premix (Pitocin (09/06/17 09:15) Fentanyl 2mcg-Bupiv 0.125% Inj (Fentanyl (09/06/17 13:01) Group B Strep: Negative Labs Laboratory Tests Test 09/06/17 08:15 09/06/17 08:35 Urine Color YELLOW Urine Turbidity HAZY Urine pH 7.0 Urine Specific [place] 1.013 Urine Protein NEG Urine Glucose (UA) NEG Urine Ketones NEG Urine Occult Blood NEG Urine Nitrite NEG Urine Bilirubin NEG Urine Urobilinogen LESS THAN 2.0 Urine Leukocyte Esterase MOD Urine RBC 1 Urine WBC 2 Urine Squamous Epithelial Cells 8 Urine Transitional Epithelial Cells <1 Urine Amorphous Sediment RARE Urine Bacteria OCC Urine Mucus FEW Microscopic Urinalysis Comment CULT NOT INDICATED Urine Opiates Screen NEG Urine Barbiturates Screen NEG Urine Amphetamines Screen NEG Urine Benzodiazepines Screen NEG Urine Cocaine Screen NEG Urine Cannabinoids Screen NEG White Blood Count 7.5 Red Blood Count 4.05 Hemoglobin 10.6 Hematocrit 32.3 Mean Corpuscular Volume 79.6 Mean Corpuscular Hemoglobin 26.1 Mean Corpuscular Hemoglobin Concent 32.7 Red Cell Distribution Width 14.9 Platelet Count 222 Mean Platelet Volume 8.3 Neutrophils (%) (Auto) 53.1 Lymphocytes (%) (Auto) 30.0 Monocytes (%) (Auto) 10.1 Eosinophils (%) (Auto) 5.8 Basophils (%) (Auto) 1.0 Neutrophils # (Auto) 4.0 Lymphocytes # (Auto) 2.2 Monocytes # (Auto) 0.8 Eosinophils # (Auto) 0.4 Basophils # (Auto) 0.1 CBC Comment DIFF FINAL Differential Comment Assessment/Plan Problem List: (1) ICD Codes: Z33.1 - state, incidental Status: Acute Assessment and Plan doing well Kalpesh John MD Sep 06, 2017 13:12
[2017-09-06] MEDS ORDERED: DIPHTH/TETANUS/ACEL PERTUSSIS (BOOSTER) 0.5 ML VIAL/PFS IM ONE (16:00)
[2017-09-06] MEDS ORDERED: MEASLES, MUMPS, RUBELLA VACCINE 0.5 ML VIAL SQ ONE (16:00)
[2017-09-06] MEDS ORDERED: ONDANSETRON ODT 4 MG TAB PO PRN (17:00)
[2017-09-06] MEDS ORDERED: ACETAMINOPHEN 325 MG TAB PO PRN (17:00)
[2017-09-06] MEDS ORDERED: SODIUM CHLORIDE 0.9% FLUSH 10 ML FLUSH IV FLUSH PRN (17:00)
[2017-09-06] MEDS ORDERED: DOCUSATE SODIUM 50 MG/SENNA 8.6 MG TAB PO PRN (17:00)
[2017-09-06] MEDS ORDERED: WITCH HAZEL 50%/GLYCERIN 12.5% 40 PAD JAR TOPICAL PRN (17:00)
[2017-09-06] MEDS ORDERED: ALUMINUM/MAGNESIUM/SIMETH 30 ML CUP PO PRN (17:00)
[2017-09-06] MEDS ORDERED: ZOLPIDEM TARTRATE 5 MG TAB PO PRN (17:00)
[2017-09-06] MEDS ORDERED: BENZOCAINE 20% TOPICAL SPRAY 60 ML CAN TOPICAL PRN (17:00)
[2017-09-06] MEDS ORDERED: NO SYSTEM NARCOTICS PRN (17:45)
[2017-09-06] MEDS ORDERED: ePHEDrine/NS 25 MG/5 ML SYRINGE IV PUSH PRN (17:45)
[2017-09-06] MEDS ORDERED: fentaNYL 2MCG-BUPIV 0.125% 150 ML EPIDURAL PRN (17:45)
[2017-09-06] MEDS ORDERED: DO NOT ADMINISTER ANTICOAGULANTS PRN (17:45)
[2017-09-06] MEDS ORDERED: OXYTOCIN 30 UNITS-500ML PREMIX 500 ML IV SCH (18:00)
[2017-09-06] MEDS ORDERED: SODIUM CHLORIDE 0.9% FLUSH 10 ML FLUSH IV FLUSH SCH (21:00)
[2017-09-07] MEDS: IBUPROFEN 800 MG TAB PO PRN ×2 (01:57→10:26)
--- NOTE | 2017-09-07 07:49 | PD.OB.DELI ---
Weeks gestation: 39 Gest age assessed date: Sep 06, 2017 Gest age assessed time: 09:00 Pt started active labor?: No Medical induction of labor?: No Artificial rupture of membrane: Yes Artificial ROM date: Sep 07, 2017 Artifical ROM time: 09:00 Anesthesia: Epidural Episiotomy: None Vaginal Delivery: Normal, Spontaneous Presentation: Occiput anterior Nuchal Cord: None Delayed cord clamping (45 sec): Yes Delivery date: Sep 06, 2017 Delivery time: 16:40 One Minute : 9 Five Minute : 9 Placenta: Spontaneous delivery, Intact, 3 vessel cord Laceration: No lacerations Estimated blood loss: 300 Kalpesh John MD Sep 07, 2017 07:49
--- NOTE | 2017-09-07 07:50 | HHI.OB ---
Subjective Post Day: 1 Remarks doing well Objective Objective Remarks GENERAL: Well-nourished, well-developed patient. ABDOMEN/GI: Abdomen soft, non-tender. Fundus: Firm, non-tender at umbilicus. GENITOURINARY: Light to moderate bleeding. EXTREMITIES: No cyanosis or edema, non-tender, without signs of DVT. Medications and IVs Current Medications Medications (Trade) Dose Ordered Sig/Sulema Route Start Time Stop Time Status Last Admin (NS Flush) 2 ml BID IV FLUSH 09/06/17 21:00 (NS Flush) 2 ml UNSCH PRN IV FLUSH 09/06/17 17:00 (Tylenol) 650 mg Q4H PRN PO 09/06/17 17:00 (Motrin) 800 mg Q8H PRN PO 09/06/17 17:00 09/07/17 01:57 (Americaine 20% Top Spr) 1 spray Q4H PRN TOPICAL 09/06/17 17:00 09/07/17 01:57 (Tucks Pads) 1 applic QID PRN TOPICAL 09/06/17 17:00 09/07/17 01:57 (Dolly-Colace) 2 tab Q12H PRN PO 09/06/17 17:00 (Ambien) 5 mg HS PRN PO 09/06/17 17:00 (Mag-Al Plus Susp Liq) 15 ml Q8H PRN PO 09/06/17 17:00 (Zofran Odt) 4 mg Q6H PRN PO 09/06/17 17:00 ([facility] [place] [facility] Information) No systemic narcotics to be given except... UNSCH PRN .XX 09/06/17 17:45 09/07/17 17:44 ([facility] [place] Nursing Information) DO NOT ADMINISTER ANY ANTICOAGUL... UNSCH PRN .XX 09/06/17 17:45 09/07/17 17:44 Fentanyl/ Bupivacaine/ Sodium Chlor 150 ml @ 0 mls/hr TITRATE PRN EPIDURAL 09/06/17 17:45 (ePHEDrine/NS 25 MG/5 ML SYR) 10 mg UNSCH PRN IV PUSH 09/06/17 17:45 09/07/17 17:44 Assessment/Plan Problem List: (1) ICD Codes: Z33.1 - state, incidental Status: Acute Assessment and Plan doing well Kalpesh John MD Sep 07, 2017 07:50
[2017-09-07] MEDS ORDERED: PERC5TAB12 PO (07:52)
--- NOTE | 2017-09-07 07:52 | HHI.DCPOC ---
Discharge Care Plan Diagnosis: (1) Spontaneous vaginal delivery Report Symptoms to Your Doctor -Temperature above 100.5 degrees -Redness, of incision or excessive or foul smelling drainage -Unusual pain or calf pain -Increased vaginal bleeding -Painful or difficulty urinating -Feelings of extreme sadness or anxiety after 2 weeks Goals to Promote Your Health * To prevent worsening of your condition and complications * To maintain your health at the optimal level Directions to Meet Your Goals Take your medications as prescribed Follow your dietary instruction Follow activity as directed Ensure plenty of rest for recovery Drink fluids for hydration Keep your appointments as scheduled Take your immunizations and boosters as scheduled If your symptoms worsen call your PCP, if no PCP go to Urgent Care Center or Emergency Room Smoking is Dangerous to Your Health. Avoid second hand smoke Call the 24-hour crisis hotline for domestic abuse at Kalpesh John MD Sep 07, 2017 07:52
--- NOTE | 2017-09-07 07:54 | HHI.DS ---
Admission Date Sep 06, 2017 at 08:04 Discharge Date: Sep 07, 2017 Admitting Diagnosis Diagnosis: (1) Spontaneous vaginal delivery ICD Codes: O80 - Encounter for full-term uncomplicated delivery Status: Acute Delivery Date: Sep 06, 2017 Vaginal Delivery: Normal, Spontaneous Brief History 27 yo WF here 39 weeks induction at 3 cm dilated Hospital Course doing well Pt Condition on Discharge: Good Discharge Disposition: Discharge Home Discharge Instructions Activities You Can Perform: Regular-No Restrictions Activities to Avoid: Driving for 24 hrs Follow up Referrals: STAFF MECHANICAL ENGINEER - 2 Weeks @ [facility] with Kalpesh John MD New Medications: Oxycodone-Acetaminophen (Percocet) 5-325 mg Tab 1-2 TAB PO Q4H PRN for PAIN, #20 TAB 0 Refills Kalpesh John MD Sep 07, 2017 07:54
[2017-09-07] MEDS ORDERED: SERT-132 PO (18:11)
== END 2017-09-07 19:02 | disposition home or self-care (01) | DRG 775 ==
LOC: H2EA 08:04 → H1EA 18:15
PROVIDERS: ADMIT Obstetrics & Gynecology; ATTEND Obstetrics & Gynecology
PROC: 10E0XZZ Delivery of Products of Conception, External Approach (ICD-10-PCS; principal; 2017-09-06)
PROC: 10907ZC Drainage of Amniotic Fluid, Therapeutic from Products of Conception, Via Natural or Artificial Opening (ICD-10-PCS; 2017-09-06)
PROC: 00HU33Z Insertion of Infusion Device into Spinal Canal, Percutaneous Approach (ICD-10-PCS; 2017-09-06)
PROC: 3E0R3BZ Introduction of Anesthetic Agent into Spinal Canal, Percutaneous Approach (ICD-10-PCS; 2017-09-06)
DX: O80 Encounter for full-term uncomplicated delivery (principal); Z23 Encounter for immunization; Z37.0 Single live birth; Z3A.39 39 weeks gestation of pregnancy
CPT/HCPCS: 59025; 80307; 81001; 85025; 86900; 86901; 90715; G0481; J2590; J3010; J7120